=== PATIENT | male | born 1935 | race Caucasian/White ===

== ENCOUNTER 2020-11-28 02:16 | Emergency (ER) | payer OTHER ==
[~2020-11-28] VITALS: Ht 177.8 cm; Wt 70.0 kg
--- NOTE | 2020-11-28 02:27 | NUR ---
PT BIB [facility] FROM HOME FOR ETOH. PT IS VERBALLY AGGRESSIVE 79YR OLD MALE. FOUND WITH 2 EMPTY PINTS OF VODKA AT HOME. NAD, PLACED ON SPO2/BP/ECG MONITORING. WCTM HX OF DM, A-FIB PT TELLING NURSES AND STAFF "YOURE FUCKING UGLY, GOD YOURE ALL UGLY." "ANYONE EVER TELL YOU THAT YOU HAVE A FAT ASS? CAUSE YOU FUCKING DO". WHEN PT INFORMED HE CANT SPEAK TO STAFF THIS WAY, PT RESPONDED "WELL WHAT ARE YOU GOING TO DO ABOUT IT?" DAVID TRAVIS AT FOR EVAL AND POC.
--- NOTE | 2020-11-28 04:10 | NUR ---
pt sotero in room saying "sophia, talon" when rn at bs pt states "i just wanted to make sure you didnt forget about me fatty." pt kyler, resting on marcell connor. mtf
--- NOTE | 2020-11-28 05:15 | NUR ---
late entry d/t pt care: rn provided pt with walker per baseline use, pt unsteady and unsafe to dc at this time. pt assisted back to kyler connor, marcell. mtf
--- NOTE | 2020-11-28 06:24 | NUR ---
pt resting on gurney, nad, eyes closed, even and unlabored respirations, wctm. mtf
--- NOTE | 2020-11-28 06:59 | NUR ---
BEDSIDE REPORT TO THANG LOPEZ, PT CARE TRANSFERRED AT THIS TIME.
--- NOTE | 2020-11-28 07:16 | NUR ---
report from keo rose sleeping
--- NOTE | 2020-11-28 07:51 | NUR ---
ASSISTED TO DC AREA W WALKER. PT STEADY W WALKER. TAXI VOUCHER APPLIED. DC INSTRUCTIONS GIVEN
[2020-11-28 07:52] VITALS: BP 145/79
== END 2020-11-28 07:54 | disposition home or self-care (01) ==
LOC: ED 07:30
DX: F10.120 Alcohol abuse with intoxication, uncomplicated (principal); E11.9 Type 2 diabetes mellitus without complications; Z72.9 Problem related to lifestyle, unspecified; Y90.0 Blood alcohol level of less than 20 mg/100 ml
CPT/HCPCS: 99283